=== PATIENT | female | born 1995 | race Hispanic/Latino ===

== ENCOUNTER 2018-03-09 13:50 | Inpatient (IN) ==
[2018-03-09 14:15] LABS: URINE SOURCE VOIDED
[2018-03-09 14:33] LABS: BILIRUBIN URINE NEGATIVE (NEGATIVE); BLOOD URINE 3+ (NEGATIVE); CLARITY CLEAR (CLEAR); COLOR YELLOW; GLUCOSE URINE NEGATIVE (NEGATIVE); KETONE URINE NEGATIVE (NEGATIVE); LEUKOCYTES URINE 2+ (NEGATIVE); NITRITE URINE NEGATIVE (NEGATIVE); PROTEIN URINE NEGATIVE (NEGATIVE); UROBILINOGEN URINE NORMAL
[2018-03-09 14:35] LABS: UR AMPHETAMINES QUAL NONE DETECTED (NONE DETECT); UR BARBITUATES QUAL NONE DETECTED (NONE DETECT); UR BENZODIAZEPIN QUAL NONE DETECTED (NONE DETECT); UR CANNABINOIDS QUAL NONE DETECTED (NONE DETECT); UR COCAINE QUAL NONE DETECTED (NONE DETECT); UR METHADONE QUAL NONE DETECTED (NONE DETECT); UR METHAMPHETAMINE QUAL NONE DETECTED (NONE DETECT); UR OPIATES QUAL NONE DETECTED (NONE DETECT); UR OXYCODONE QUAL NONE DETECTED (NONE DETECT); UR PCP QUAL NONE DETECTED (NONE DETECT); UR PROPOXYPHENE QUAL NONE DETECTED (NONE DETECT); UR TCA QUAL NONE DETECTED (NONE DETECT)
[2018-03-09] MEDS ORDERED: AMPICILLIN 2 GM/NS 2 GM/100 ML IVPB IV ONE (14:56)
[2018-03-09] MEDS ORDERED: ZOFRAN IV PRN (15:01)
[2018-03-09] MEDS ORDERED: REGLAN PO ONE (15:01)
[2018-03-09] MEDS ORDERED: TYLENOL PO PRN ×2 (15:01→19:15)
[2018-03-09] MEDS ORDERED: PEPCID IV PRN (15:01)
[2018-03-09] MEDS ORDERED: KEFZOL 1 GM/D5W 1 GM/50 ML IVPB IV PRN (15:01)
[2018-03-09] MEDS ORDERED: STADOL IV PRN (15:01)
[2018-03-09] MEDS ORDERED: PEPCID PO ONE (15:01)
[2018-03-09] MEDS ORDERED: PEPCID PO PRN (15:01)
[2018-03-09] MEDS: LR 3,000 ML ONE ×2 (15:05→17:21)
[2018-03-09 15:09] LABS: BASO# 0.02 X1000 (0.0-0.2); BASO% 0.2 % (0.0-0.8); EOS# 0.06 X1000 (0.0-0.7); EOS% 0.7 % (0.0-10.0); HEMATOCRIT 29.6 % (37.0-47.0); HEMOGLOBIN 9.5 g/dL (12.0-16.0); IMM GRAN# 0.08 X1000 (0.0-0.04); IMM GRAN% 0.9 % (0.0-0.5); LYMPH# 2.23 X1000 (1.2-3.4); LYMPH% 25.3 % (20.5-51.1); MCHC 32.1 g/dL (33-37); MCV 81.1 FL (81-99); MONO# 0.59 X1000 (0.11-0.59); MONO% 6.7 % (1.7-9.3); MPV 12.7 FL (7.4-10.4); NEUT# 5.85 X1000 (1.4-6.5); NEUT% 66.2 % (42.2-75.2); PLT 81 X1000 (130-400); RBC 3.65 XMIL (4.2-5.4); RDW 13.7 % (11.5-14.5); WBC 8.83 X1000 (4.8-10.8)
[2018-03-09] MEDS ORDERED: SODIUM CHLORIDE 0.9% INJ SCH (15:15)
[2018-03-09] MEDS ORDERED: PITOCIN 10 UNITS/LR 10 UNIT/1,000 ML IV.SOLN IV SCH (15:15)
[2018-03-09] MEDS ORDERED: NAROPIN 0.2% INJ ONE (15:15)
[2018-03-09] MEDS ORDERED: FENTANYL IV ONE (15:15)
[2018-03-09] MEDS ORDERED: XYLOCAINE-MPF 1% INJ ONE (15:24)
[2018-03-09] MEDS ORDERED: MINERAL OIL PO ONE (15:26)
[2018-03-09 15:31] LABS: RAPID HIV PRESUMPTIVE NEGATIVE; RPR NON-REACTIVE (NONREACTIVE)
[2018-03-09] MEDS ORDERED: FENTANYL-BUPIV-NS 2 MCG-0.1% 200 ML EPIDURAL PRN (15:49)
[2018-03-09] MEDS ORDERED: PITOCIN 30 UNITS/NS 30 UNIT/500 ML IV.SOLN ONE (15:49)
--- NOTE | 2018-03-09 17:08 | PROGRESS NOTE ---
DATE: 03/09/2018 heart rate category 1. Contraction pattern is every 3-1/2 minutes. Cervix remains 5/90/-1, cephalic. For bag ruptured. Clear amniotic fluid. ASSESSMENT: Term gestation in labor. PLAN: Will go ahead and start oxytocin augmentation. cc: Deepak De La Torre MD
--- NOTE | 2018-03-09 18:00 | HISTORY AND PHYSICAL ---
CHIEF COMPLAINT: Rupture of membranes. HPI: A 22-year-old 2, para 1, presents complaining of ruptured membranes. She has had no care with this . She does not speak [place]. Using a [place] translation service, we determined that she complained of rupture of membranes at 0430 this morning as well as some contractions. By her LMP her EDC would be 03/18/2018. PAST OB HISTORY: One previous vaginal delivery at term. PAST MEDICAL HISTORY: Negative. PAST SURGICAL HISTORY: Negative. CURRENT MEDICATIONS: None. ALLERGIES: None. OBJECTIVE: General Appearance: She is mildly uncomfortable. Abdomen: Estimated weight 7- 1/2 pounds. heart rate category 1. She is having firm contractions every 3 minutes. Pelvis: Cervix is 5/90/-1. She has a palpable fore bag. Pelvis feels adequate for delivery. LAB: Rupture of membranes test is positive. ASSESSMENT: Term gestation in labor with ruptured membranes. PLAN: She will receive beta strep prophylaxis due to unknown status. She will be admitted to labor and delivery. She is cleared for epidural. Anticipate vaginal delivery. cc: Deepak De La Torre MD
[2018-03-09] MEDS ORDERED: PITOCIN 20 UNITS/NS 20 UNITS/1,000 ML IV.SOLN ONE (18:53)
[2018-03-09] MEDS ORDERED: AMPICILLIN 1 GM/NS 1 GM/50 ML IVPB IV SCH (18:57)
[2018-03-09] MEDS ORDERED: CYTOTEC PO PRN (19:12)
[2018-03-09] MEDS ORDERED: BENADRYL IV PRN (19:12)
[2018-03-09] MEDS ORDERED: BENADRYL PO PRN (19:12)
[2018-03-09] MEDS ORDERED: AMBIEN PO PRN (19:12)
[2018-03-09] MEDS ORDERED: M-M-R II VACCINE SUBQ ONE (19:12)
[2018-03-09] MEDS ORDERED: ATARAX PO PRN (19:12)
[2018-03-09] MEDS ORDERED: PITOCIN IM PRN (19:12)
[2018-03-09] MEDS ORDERED: PERI MEDS (DERMOPLAST/NUPERCAINAL/TUCKS) MISC PRN (19:12)
[2018-03-09] MEDS ORDERED: BOOSTRIX VACCINE IM ONE (19:12)
[2018-03-09] MEDS ORDERED: HYDROXYZINE IM PRN (19:12)
[2018-03-09] MEDS ORDERED: PITOCIN 20 UNITS/NS 20 UNITS/1,000 ML IV.SOLN IV SCH (19:15)
[2018-03-09] MEDS ORDERED: PITOCIN 30 UNITS/NS 30 UNIT/500 ML IV.SOLN IV SCH (19:15)
[2018-03-09] MEDS: PERICOLACE PO SCH (21:25)
[2018-03-09 21:39] LABS: HIV ANTIBODY SCREEN SEE COMMENTS
[2018-03-09] MEDS: MOTRIN PO PRN (23:43)
--- NOTE | 2018-03-10 02:23 | OPERATIVE NOTE ---
PROCEDURE DATE: 03/09/2018 DETAILS OF PROCEDURE: Spontaneous vaginal delivery of a vigorous male , weight 8 pounds 12 ounces. Apgars at 9/10 over an intact perineum without complications. Infant delivered from PETTY. Cord blood obtained. Placenta delivered spontaneous and intact. Placenta normal appearing. No lacerations. She had a superficial midline laceration, 1st degree, not requiring repair. Procedure tolerated well by the patient. Mother and in good condition. cc: Deepak De La Torre MD
[2018-03-10 05:56] LABS: BASO# 0.02 X1000 (0.0-0.2); BASO% 0.1 % (0.0-0.8); EOS# 0.08 X1000 (0.0-0.7); EOS% 0.6 % (0.0-10.0); HEMATOCRIT 26.8 % (37.0-47.0); HEMOGLOBIN 8.5 g/dL (12.0-16.0); IMM GRAN# 0.09 X1000 (0.0-0.04); IMM GRAN% 0.6 % (0.0-0.5); LYMPH# 2.42 X1000 (1.2-3.4); LYMPH% 16.9 % (20.5-51.1); MCHC 31.7 g/dL (33-37); MONO# 0.89 X1000 (0.11-0.59); MONO% 6.2 % (1.7-9.3); NEUT# 10.84 X1000 (1.4-6.5); NEUT% 75.6 % (42.2-75.2); PLT 69 X1000 (130-400); RBC 3.27 XMIL (4.2-5.4); RDW 13.7 % (11.5-14.5); WBC 14.34 X1000 (4.8-10.8)
[2018-03-10 05:58] LABS: LYMPHS 15 % (21-51); MONO 5 % (1-9); SEGS 80 % (42-75)
--- NOTE | 2018-03-10 07:22 | PROGRESS NOTE ---
DATE: 03/10/2018 SUBJECTIVE: No complaints. Bleeding is minimal. OBJECTIVE: Normotensive. The patient is sleeping, easily arousable. Abdomen: Fundus is nontender. LABORATORY DATA: Hemoglobin is 8.5, down 1 point from antepartum. Platelets are 69,000. Iron was low at 38. HIV is presumptive negative. Hepatitis C is pending. ASSESSMENT: 1. Stable postop. 2. Significant thrombocytopenia. PLAN: We will repeat her CBC tomorrow. She can be followed up at and very well may need a hematology consultation. Probable discharge in a.m. if she is, otherwise , doing well. cc: Deepak De La Torre MD MTDD
[2018-03-10] MEDS: FERROUS SULFATE PO SCH ×2 (08:10→23:48)
[2018-03-10 10:11] LABS: HEPATITIS B SURFACE ANTIGEN SEE COMMENTS
[2018-03-10] MEDS: PERICOLACE PO SCH (23:48)
[2018-03-11 07:36] LABS: HEMATOCRIT 27.8 % (37.0-47.0); HEMOGLOBIN 8.8 g/dL (12.0-16.0); MCH 26.1 PG (27-31); MCHC 31.7 g/dL (33-37); MCV 82.5 FL (81-99); MPV 12.9 FL (7.4-10.4); RBC 3.37 XMIL (4.2-5.4); WBC 12.66 X1000 (4.8-10.8)
[2018-03-11 08:23] VITALS: BP 107/72
[2018-03-11] MEDS: MOTRIN PO PRN (09:14)
[2018-03-11] MEDS: FERROUS SULFATE PO SCH (09:14)
--- NOTE | 2018-03-11 10:40 | DISCHARGE SUMMARY ---
PROCEDURE DATE: 03/11/2018 DISCHARGE DIAGNOSES: 1. Term gestation. 2. No care. 3. Ruptured membranes, with onset of labor. 4. Thrombocytopenia. PROCEDURE PERFORMED: Spontaneous vaginal delivery. HOSPITAL COURSE: A 22-year-old, 2, now para 2, who presented to the hospital complaining of spontaneous rupture of membranes with contractions. Her antepartum course was complicated by an absence of any care. On exam, she was noted to have ruptured membranes, and her cervix was 5 to 6 cm dilated. She was penny, but after a period of a hypotonic labor, she was started on oxytocin augmentation to augment her labor. She also received antibiotic prophylaxis for beta strep due to unknown status. Of note, her platelets on admission were 81,000. She went on to have a vaginal delivery of a male , weight 8 pounds 12 ounces, with Apgars of 9 and 10, over an intact perineum. , her platelets dropped to 69, and on day #2 were back up to 86. Hemoglobin was 9.5 antepartum, and 8.8 . PHYSICAL EXAMINATION: On the day of discharge, physical examination revealed stable vital signs, afebrile, soft and nontender fundus. Bleeding was normal. She now is discharged home in good condition on the morning of day #2. DIET: Regular. ACTIVITY: Pelvic rest. MEDICATIONS: Iron sulfate 325 mg p.o. b.i.d. FOLLOWUP: With Dr. Malave in 6 weeks. She will need a followup CBC to determine if she has a gestational thrombocytopenia, or some other underlying etiology. Her HIV was presumptive negative in the hospital. Antibody to hepatitis C is pending at the time of this dictation. cc: Deepak De La Torre MD
[2018-03-11] MEDS ORDERED: FLU VACCINE IM ONE (10:45)
== END 2018-03-11 13:40 | disposition home or self-care (01) | DRG 807 ==
LOC: P.NBC 13:50 → P.LD 14:05
PROVIDERS: ADMIT Obstetrics & Gynecology; ATTEND Obstetrics & Gynecology
CPT/HCPCS: 80104; 80301; 80305; 81003; 82947; 83540; 84112; 85025; 85027; 86592; 86701; 86703; 86762; 86850; 86900; 86901; 87340; 87389; 87390; 87491; 87591; 90686; 90707; 90715; A9270; G0431; G0434; G0477; J0290; J0595; J2590; J7120